=== PATIENT | female | born 1955 | race Caucasian/White ===

== ENCOUNTER 2017-02-05 15:47 | Inpatient (IN) | payer OTHER ==
--- NOTE | ~2017-02-05 | HP ---
History And Physical [place] [address] [place]. [address] NAME: BROOKLYNN OLIVAS : 51 STATUS : ADM IN PAT#: [id number] AGE: 61 ADM/REG DATE : 02/05/17 MR#: [id number] REPORT SERV DATE: 02/06/17 DICTATED BY: SUMEET CAMARENA DATE: 02/06/17 REPORT STATUS : Draft TRANSCRIBED BY: MODL DATE: 02/06/17 DATE OF ADMISSION: 02/06/2017 REASON FOR ADMISSION: Abdominopelvic mass. HISTORY OF PRESENT ILLNESS: Ms. Olivas is a delightful 61-year-old female, who over the past eighteen months has had a history of increased abdominal girth and feelings of abdominal pressure. She attributed to weight gain. She over the past three weeks has had increasing fluid retention in her bilateral lower extremities and that is what brought her to the emergency room yesterday. PAST MEDICAL HISTORY: Negative. PAST SURGICAL HISTORY: Negative. GYNECOLOGIC HISTORY: She has never had a Pap smear, mammogram, or colonoscopy. SOCIAL HISTORY: She denies current tobacco, alcohol, or illicit drug use. She quit smoking thirteen years ago, which she did smoke for many many years prior to that. ALLERGIES: NO KNOWN DRUG ALLERGIES. FAMILY HISTORY: Negative for GI, , or breast malignancies. REVIEW OF SYSTEMS: Significant for bilateral lower extremity edema and increased abdominal girth. She denies chest pain, no shortness of breath. Denies nausea, vomiting. She did have one episode of vaginal bleeding this morning, but no other postmenopausal bleeding over the past thirteen years. PHYSICAL EXAMINATION: VITAL SIGNS: Her temperature is 98.5, pulse ranges from 99 to 109, respirations 16, O2 saturations 98% on room air, blood pressure is 114/56. HEENT: Normocephalic, atraumatic. HEART: Regular rate and rhythm. LUNGS: Clear to auscultation bilaterally. ABDOMEN: Markedly distended with known abdominopelvic mass. EXTREMITIES: 2+ pitting edema in the bilateral lower extremities. PELVIC: Deferred. IMAGING: CT imaging reveals a 40 cm abdominopelvic mass, primarily cystic with several areas of solid components with nodular densities in several locations. The mass takes up the majority of her abdomen and pelvis. There is a 7.5 cm hiatal hernia. The bowel is unremarkable. The remainder of her abdominal pelvic organs were decompressed, it was difficult to comment upon their status. History And Physical [address] [place]. [address] NAME: BROOKLYNN OLIVAS : 51 STATUS : ADM IN PAT#: [id number] AGE: 61 ADM/REG DATE : 02/05/17 MR#: [id number] REPORT SERV DATE: 02/06/17 DICTATED BY: SUMEET CAMARENA DATE: 02/06/17 REPORT STATUS : Draft TRANSCRIBED BY: MODVicky DATE: 02/06/17 LABORATORY EVALUATION: Her CA-125 is elevated at 306. Her CEA is normal at 3.5, CA-19-9 is pending. Her albumin is 2.8, creatinine is 0.97, white blood cell count is13.4, hemoglobin is 13.3, and platelets were 454. Going forward, I have recommended an exploratory laparotomy with total abdominal hysterectomy, bilateral salpingo-oophorectomy with removal of this large abdominal pelvic mass. Frozen section diagnosis will be performed. If this is a borderline tumor or kassandra malignancy, then a staging procedure will be performed, possibly an appendectomy may also be necessary if this turns out to be a mucinous neoplasm. Risks and benefits of the procedure were discussed in detail including bleeding, infection, injury to bowel, bladder, blood vessels, or ureters. The possibility of a second surgery, second hospitalization, and discussed. Additional risks discussed including pneumonia and thromboembolic disease. The patient had numerous appropriate questions, all of which were answered to her satisfaction. We will proceed as outlined above. DAT/KIM Sumeet Camarena MD / [id number] CC: Cristino Brownlee M.D.
--- NOTE | ~2017-02-05 | DS ---
Discharge Summary [place] [address] [facility] [place]. [address] NAME: BROOKLYNN LACY : 51 STATUS : DIS IN PAT#: [id number] AGE: 61 ADM/REG DATE : 02/05/17 MR#: [id number] REPORT SERV DATE: 02/20/17 DICTATED BY: SUMEET CAMARENA DATE: 02/19/17 REPORT STATUS : Draft TRANSCRIBED BY: MODL DATE: 02/19/17 Data Collection from hospitalization DISCHARGE DIAGNOSES: 1. Ovarian cancer. 2. Former smoker. CONSULTATIONS: None. PROCEDURES PERFORMED: Exploratory laparotomy with total abdominal hysterectomy with bilateral salpingo-oophorectomy with omentectomy for ovarian neoplasm, CPT code 89055. Bilateral pelvic and periaortic lymph node dissection via laparotomy incision, CPT code 74917. Appendectomy, CPT code 75298 on 02/06/2017. CT scan of the abdomen and pelvis without contrast, 02/05/2017. PATHOLOGY: Peritoneal fluid cytology (smears, ThinPrep, cell block)-rare atypical groups favor reactive mesothelial cells, see description and comment. 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 Uterus with left fallopian tube and ovary-hysterectomy with left salpingo- oophorectomy. Omentum, omentectomy-negative for tumor. Right external iliac lymph nodes, regional resection-benign lymph nodes, negative for tumor (0/9). Right obturator lymph nodes, regional resection-three lymph nodes negative for tumor (0/3). Left external iliac lymph node ,regional resection-fat only (no lymph node identified). Left obturator lymph nodes, regional resection-four lymph nodes negative for tumor ( ). DISCHARGE MEDICATIONS: Tums two tablets as needed, Pepcid 20 mg daily as needed, Motrin 200 mg daily as needed, Zofran every six hours as needed, Percocet 5/325 one to two tablets every four hours as needed. CONDITION AT DISCHARGE: Stable. DISPOSITION: The patient was discharged home on a mechanical soft diet with activities as instructed. She would follow up with me in 10 to 14 days following discharge. HOSPITAL COURSE: This is a 61-year-old female who over the past 18-month has had a history of increased abdominal girth and a feeling of abdominal pressure. She has attributed this to weight gain. Over the past three months, she has had increasing fluid retention in her bilateral lower extremities and this is what brought her to the emergency room. A CT scan of the abdomen and pelvis without contrast revealed a 40 cm abdominopelvic mass, primarily cystic with several areas of solid component with nodular densities in several locations. The mass picks up the majority of her abdomen and pelvis. There was a 7.5 cm hiatal hernia. The bowel was unremarkable. The remainder of her abdominal-pelvic organs were decompressed. CA-125 was elevated at 306. CEA was normal at 3.5. CA-19-9 was pending. Treatment options were discussed and it was elected to proceed with surgical intervention. She was admitted to the hospital at this time for further evaluation and treatment. Upon admission, she was taken to the operating room where she underwent the above-mentioned procedure. She tolerated this well and there were no complications. On postop day #1, her Discharge Summary [place] [address] [facility] [place]. [address] NAME: BROOKLYNN LACY : 51 STATUS : DIS IN PAT#: [id number] AGE: 61 ADM/REG DATE : 02/05/17 MR#: [id number] REPORT SERV DATE: 02/20/17 DICTATED BY: SUMEET CAMARENA DATE: 02/19/17 REPORT STATUS : Draft TRANSCRIBED BY: KIM DATE: 02/19/17 pain was controlled. Her incisions were clean, dry, and intact. Her abdomen was soft. Mason catheter was discontinued. She was started on a soft diet. We encouraged her to ambulate. Lovenox was given. On postop day #2, the FUR COMBER was discontinued. She was started on Percocet. MiraLAX was given for constipation. She continued to progress. She did develop some nausea. She was passing flatus. Her diet was slowly advanced. Discharge planning was performed. On 02/10/2017, discharge instructions were given. Due to her improved and stable condition, she was discharged home with the above-stated instructions. Information collected by: Janet Flaherty I submit the above information as my discharge summary. SHAMIR/KIM Sumeet Camarena MD / [id number] CC: Cristino Brownlee M.D.
--- NOTE | ~2017-02-05 | OP ---
Record Of Operation [facility] [address] [place]. [address] NAME: BROOKLYNN LACY : 51 STATUS : ADM IN PAT#: [id number] AGE: 61 ADM/REG DATE : 02/05/17 MR#: [id number] REPORT SERV DATE: 02/08/17 DICTATED BY: SUMEET CAMARENA DATE: 02/08/17 REPORT STATUS : Draft TRANSCRIBED BY: MODL DATE: 02/08/17 DATE OF PROCEDURE: 02/06/2017 PREOPERATIVE DIAGNOSIS: Large abdominal pelvic mass and elevated CA125. POSTOPERATIVE DIAGNOSIS: Ovarian cancer. PROCEDURE: Exploratory laparotomy with total abdominal hysterectomy with bilateral salpingo- oophorectomy with omentectomy for ovarian neoplasm, CPT code 91107. Bilateral pelvic and periaortic lymph node dissection via laparotomy incision, CPT code 60227. Appendectomy CPT code 37275. SURGEON: Sumeet Camarena MD. ANESTHESIA: General. FINDINGS: Large smooth walled 40 cm abdominal pelvic mass taking up the entire pelvic and abdominal cavity up to the bilateral diaphragms causing anatomic distortion of the large bowel, spleen, and liver. The mass did not have any adhesions and was emanating from the right adnexa. The mass was removed and sent for frozen section and was consistent with cancer. No other specifics were given other than this was positive for malignancy. Once the mass was opened, there were multiple large 7-to-8 cm size excrescences emanating from the inner surface. The exterior of the mass itself was smooth walled. The appendix was grossly normal. The appendix was grossly normal; however, there were mucinous components to the cyst and therefore the appendix was taken. Her small and large bowel as well as all other peritoneal surfaces were grossly normal. Her uterus and the contralateral ovary were normal and there were no grossly enlarged lymph nodes. PATHOLOGY: Uterus, uterine cervix, left adnexa, right ovarian neoplasm, infragastric omentum, bilateral pelvic lymph nodes, and bilateral periaortic lymph nodes. Pelvic and abdominal fluid. COMPLICATIONS: None. POSTOPERATIVE PLAN: Extubated to PACU. PROCEDURE IN DETAIL: After informed consent was signed, the patient was taken to the operating room and placed in dorsal supine position where adequate general anesthesia was administered. She was then placed in dorsal lithotomy position in Eyad stirrups and prepped and draped in the usual fashion, and a Mason catheter was placed. The midline incision was made with a scalpel and carried down to the fascia, which was incised, muscle , posterior sheath entered sharply, incision extended inferiorly and superiorly. The mass was then brought out through this skin incision and it was apparent that this was emanating from the right adnexa. The right pelvic sidewall peritoneum was entered with Bovie cautery and the ureter was identified. The infundibulopelvic ligament was identified, isolated, doubly clamped, transected, and doubly tied with 0 Vicryl suture. The broad Record Of Operation [facility] [address] [facility] [address] [place]. [address] NAME: BROOKLYNN LACY : 51 STATUS : ADM IN PAT#: [id number] AGE: 61 ADM/REG DATE : 02/05/17 MR#: [id number] REPORT SERV DATE: 02/08/17 DICTATED BY: SUMEET CAMARENA DATE: 02/08/17 REPORT STATUS : Draft TRANSCRIBED BY: MODL DATE: 02/08/17 ligament was then taken down to the level of the uterus and the LigaSure device was then used to come across the uterine ovarian ligament. The mass was then removed and intact and sent for pathology. There was free-floating ascites in the pelvis and upper abdomen. This was collected and sent as pelvic and abdominal fluid. Next the Bookwalter retractor apparatus was assembled and deployed. All peritoneal surfaces were examined and found to be free of gross disease. The large and small bowel were examined in detail and found to be grossly normal. The bowel was packed away with moist laps. The left pelvic side wall peritoneum was taken with bipolar cautery. Traction was taken with Bovie cautery and extended lateral and parallel to the infundibulopelvic ligaments. The left ureter was identified and the left infundibulopelvic ligament was doubly clamped, transected, and tied with 0 Vicryl suture and the broad ligament taken down to the level of the cervix. Both round ligaments were taken with Bovie cautery and the vesicouterine peritoneum was incised and the bladder taken down well beneath the level of the external cervical os. The uterine vessels were then taken at the cervix, transected, and sutured with 0 Vicryl suture. Next in a stepwise fashion, the parametria was clamped, transected, and tied with 0 Vicryl suture and the level of the external cervical os was reached. Right angle zeppelin clamps were then used to come across the vagina just distal to the cervix and then at that point, the uterus, uterine cervix, and left adnexa were transected on block and sent for permanent pathology. The uterosacral ligaments and the vagina was then closed with 0 Vicryl suture with a [id number]-[id number] stitch, and the remaining vagina was then closed with 0 Vicryl suture with a [id number]-[id number] stitch. The pelvis was irrigated with copious amounts of irrigation fluid. After frozen section diagnosis confirmed malignancy, an infragastric omentectomy was performed in the usual fashion using LigaSure device and Bovie cautery. Next a complete pelvic lymphadenectomy was performed. Specifically all lymphatic tissue overlying the midportion of the common iliac artery superiorly down to the deep circumflex iliac vein inferiorly from the psoas muscle laterally, the superior vesical artery medially, and the obturator nerve posteriorly removed using Bovie cautery and blunt dissection where appropriate. Next the pelvic peritoneal overlying the midportion of the right common iliac artery was extended up and over the aorta to just above the level of the left renal vein. The left and right ureters were identified and reflected laterally and all lymphatic tissue overlying the left and right side of the aorta and overlying the vena cava from the level of the left renal vein down to the level of the bilateral common iliac arteries was taken using Bovie cautery and hemoclips were appropriate. Next the pelvis and abdomen were irrigated with copious amounts of irrigation fluid and excellent hemostasis was noted. Evicel was placed over the periaortic lymphatic dissection area. A #10 flat MARILU drain was brought into the right lower quadrant and sutured in place with 4-0 Monocryl and Dermabond. All laps removed from the abdomen. The mesoappendix was isolated and taken with the LigaSure device. Three hemostats were then placed at the base of the appendix. The appendix was then transected and the stump was tied with 2-0 silk suture x2. The abdomen was then closed with #1 looped PDS x2 and the skin was closed with 4 0 Monocryl and Dermabond. The patient was placed back in dorsal supine position, awakened extubated, and sent to the PACU in stable condition. Appropriate antibiotics and Lovenox were given prior to start of the procedure. Record Of Operation [place] [address] [place] [address] NAME: BROOKLYNN LACY : 51 STATUS : ADM IN PAT#: [id number] AGE: 61 ADM/REG DATE : 02/05/17 MR#: [id number] REPORT SERV DATE: 02/08/17 DICTATED BY: SUMEET CAMARENA DATE: 02/08/17 REPORT STATUS : Draft TRANSCRIBED BY: KIM DATE: 02/08/17 TB/KIM Sumeet Camarena MD / [id number] CC: Cristino Brownlee M.D.
[2017-02-05 19:47] LABS: BASOPHILS 0.1 %; BASOPHILS ABSOLUTE 0.02 10/3/uL (0.0-0.16); EOSINOPHILS 0.1 %; EOSINOPHILS ABSOLUTE 0.02 10/3/uL (0.0-0.53); ER CBC TAT 0 Hrs 15 Mins; HEMATOCRIT 39.6 % (36.0-48.0); HEMOGLOBIN 13.3 g/dL (12.0-16.0); IMMATURE GRANULOCYTES 0.2 %; IMMATURE GRANULOCYTES ABSOLUTE 0.03 10/3/uL (0.0-0.11); LYMPHOCYTES 6.9 %; LYMPHOCYTES ABSOLUTE 0.92 10/3/uL (0.67-4.30); MEAN CORPUS HGB CONC 33.6 g/dL (32.0-36.0); MEAN CORPUSCULAR HEMOGLOB 30.3 pg (26.0-34.0); MEAN CORPUSCULAR VOLUME 90.2 fL (80-100); MEAN PLATELET VOLUME 9.3 fL (9.2-13.0); MONOCYTES 6.3 %; MONOCYTES ABSOLUTE 0.84 10/3/uL (0.21-1.20); NEUTROPHILS 86.4 %; NEUTROPHILS ABSOLUTE 11.56 10/3/uL (2.02-8.40); PLATELET COUNT 454 10/3/uL (150-400); RBC DISTRIBUTION WIDTH 14.3 % (12.0-16.0); RED CELL COUNT 4.39 10/6/uL (4.0-5.6); WHITE BLOOD CELLS 13.4 10/3/uL (4.5-10.5)
[2017-02-05 19:48] LABS: MANUAL DIFF NO %
[2017-02-05 20:02] LABS: A/G RATIO 0.5 (0.7-1.9); ALBUMIN 2.8 G/DL (3.5-5.0); ALKALINE PHOSPHATASE 69 U/L (45-117); BUN (BLOOD UREA NITROGEN) 10 MG/DL (6-23); CALCIUM, SERUM 9.1 MG/DL (8.5-10.4); CHLORIDE, SERUM 98 MMOL/L (96-112); CO2 (CARBON DIOXIDE) 25 MMOL/L (24-34); CREATININE 0.97 MG/DL (0.55-1.02); GFR AFRICAN AMERICAN 72 ML/MIN (>=60); GFR NON AFRICAN AMERICAN 62 ML/MIN (>=60); GLOBULIN 5.2 G/DL (2.5-4.1); GLUCOSE, SERUM 92 MG/DL (60-99); POTASSIUM, SERUM 3.6 MMOL/L (3.5-5.3); SGOT(AST) 11 U/L (5-40); SGPT(ALT) 12 U/L (5-65); SODIUM, SERUM 134 MMOL/L (135-148); TOTAL BILIRUBIN 0.4 MG/DL (0-1.2)
[2017-02-05 21:56] LABS: INTERNATIONAL NORMAL RATI 1.2 UNITS (-); PARTIAL THROMBO TIME 30.3 SEC (22.5-37.2); PROTIME (NOT ORD) 14.7 SEC (12.0-14.5)
[2017-02-05] MEDS ORDERED: TUMSROLL PO (22:10)
[2017-02-05 22:11] LABS: WBC (NOT ORDERED) (RFLEX) 0 (0-5)
[2017-02-05] MEDS ORDERED: MOTRIN IB200 MG PO (22:11)
[2017-02-05] MEDS ORDERED: PEP20 PO (22:11)
[2017-02-05 22:17] LABS: CA 125 II 306.6 U/ML (< 35.0); CEA 3.5 NG/ML
[2017-02-05 22:23] LABS: ASCORBIC ACID (UR NOT ORDER) NEG (NEG); BILIRUBIN, URINE SMALL (NEG); ER URINALYSIS TAT 0 Hrs 16 Mins; KETONE, URINE 80 MG/DL (NEG); LEUKOCYTE ESTERASE(NOT OR NEG (NEG); NITRITE (URINE) NEG (NEG)
[2017-02-07 04:40] LABS: BASOPHILS 0.1 %; BASOPHILS ABSOLUTE 0.01 10/3/uL (0.0-0.16); EOSINOPHILS 0 %; HEMOGLOBIN 11.3 g/dL (12.0-16.0); IMMATURE GRANULOCYTES 0.4 %; IMMATURE GRANULOCYTES ABSOLUTE 0.04 10/3/uL (0.0-0.11); LYMPHOCYTES 11.6 %; LYMPHOCYTES ABSOLUTE 1.13 10/3/uL (0.67-4.30); MEAN CORPUSCULAR HEMOGLOB 29.7 pg (26.0-34.0); MEAN PLATELET VOLUME 9.1 fL (9.2-13.0); MONOCYTES 12.3 %; NEUTROPHILS 75.6 %; NEUTROPHILS ABSOLUTE 7.39 10/3/uL (2.02-8.40); PLATELET COUNT 456 10/3/uL (150-400); WHITE BLOOD CELLS 9.8 10/3/uL (4.5-10.5)
[2017-02-07 04:49] LABS: CHLORIDE, SERUM 105 MMOL/L (96-112); CO2 (CARBON DIOXIDE) 25 MMOL/L (24-34); CREATININE 0.68 MG/DL (0.55-1.02); GFR AFRICAN AMERICAN 108 ML/MIN (>=60); GFR NON AFRICAN AMERICAN 93 ML/MIN (>=60); GLUCOSE, SERUM 91 MG/DL (60-99); HEMATOCRIT 34.2 % (36.0-48.0); MANUAL DIFF NO %; POTASSIUM, SERUM 4.3 MMOL/L (3.5-5.3); SODIUM, SERUM 139 MMOL/L (135-148)
[2017-02-07 04:52] LABS: BUN (BLOOD UREA NITROGEN) 6 MG/DL (6-23); CALCIUM, SERUM 7.6 MG/DL (8.5-10.4)
[2017-02-10 06:18] LABS: BASOPHILS 0.4 %; BASOPHILS ABSOLUTE 0.04 10/3/uL (0.0-0.16); EOSINOPHILS 3.1 %; EOSINOPHILS ABSOLUTE 0.31 10/3/uL (0.0-0.53); HEMOGLOBIN 11.3 g/dL (12.0-16.0); IMMATURE GRANULOCYTES 0.3 %; IMMATURE GRANULOCYTES ABSOLUTE 0.03 10/3/uL (0.0-0.11); LYMPHOCYTES 13.4 %; LYMPHOCYTES ABSOLUTE 1.33 10/3/uL (0.67-4.30); MEAN CORPUS HGB CONC 33.2 g/dL (32.0-36.0); MEAN CORPUSCULAR HEMOGLOB 29.5 pg (26.0-34.0); MEAN CORPUSCULAR VOLUME 88.8 fL (80-100); MEAN PLATELET VOLUME 8.8 fL (9.2-13.0); MONOCYTES 8.2 %; MONOCYTES ABSOLUTE 0.81 10/3/uL (0.21-1.20); NEUTROPHILS 74.6 %; PLATELET COUNT 441 10/3/uL (150-400); RBC DISTRIBUTION WIDTH 14.1 % (12.0-16.0); RED CELL COUNT 3.83 10/6/uL (4.0-5.6); WHITE BLOOD CELLS 9.9 10/3/uL (4.5-10.5)
[2017-02-10 06:19] LABS: MANUAL DIFF NO %
[2017-02-10 06:28] LABS: BUN (BLOOD UREA NITROGEN) 9 MG/DL (6-23); CALCIUM, SERUM 6.9 MG/DL (8.5-10.4); CHLORIDE, SERUM 108 MMOL/L (96-112); CO2 (CARBON DIOXIDE) 24 MMOL/L (24-34); CREATININE 0.53 MG/DL (0.55-1.02); GFR AFRICAN AMERICAN 117 ML/MIN (>=60); GFR NON AFRICAN AMERICAN 101 ML/MIN (>=60); GLUCOSE, SERUM 86 MG/DL (60-99); POTASSIUM, SERUM 3.7 MMOL/L (3.5-5.3); SODIUM, SERUM 139 MMOL/L (135-148)
[2017-02-10] MEDS ORDERED: ZOFRAN8 (12:45)
[2017-02-10] MEDS ORDERED: PCET PO (12:45)
== END 2017-02-10 13:25 | disposition home or self-care (01) | DRG 738 ==
LOC: ER 15:47 → 4EA 21:49
PROVIDERS: Obstetrics & Gynecology Gynecologic Oncology; Specialist
PROC: 0UT90ZZ Resection of Uterus, Open Approach (ICD-10-PCS; principal; 2017-02-05)
PROC: 0UTC0ZZ Resection of Cervix, Open Approach (ICD-10-PCS; 2017-02-05)
PROC: 0UT70ZZ Resection of Bilateral Fallopian Tubes, Open Approach (ICD-10-PCS; 2017-02-05)
PROC: 0UT20ZZ Resection of Bilateral Ovaries, Open Approach (ICD-10-PCS; 2017-02-05)
PROC: 07BD0ZZ Excision of Aortic Lymphatic, Open Approach (ICD-10-PCS; 2017-02-05)
PROC: 07BC0ZZ Excision of Pelvis Lymphatic, Open Approach (ICD-10-PCS; 2017-02-05)
PROC: 0DTJ0ZZ Resection of Appendix, Open Approach (ICD-10-PCS; 2017-02-05)
DX: C56.9 Malignant neoplasm of unspecified ovary (principal); K44.9 Diaphragmatic hernia without obstruction or gangrene
CPT/HCPCS: 36415; 71010; 71020; 74176; 80048; 80053; 81001; 82378; 83690; 83880; 85025; 85610; 85730; 86301; 86304; 86850; 86900; 86901; 88112; 88302; 88304; 88305; 88307; 88309; 88331; 88341; 88342; 93005; 99285; A9270-GY; C1751; C1769; J0330; J0694; J1170; J2250; J2405; J2710; J3010; P9045